=== PATIENT | male | born 1990 | race Two or more races ===

== ENCOUNTER 2021-04-04 20:08 | Emergency (ER) | payer MEDICAID, OTHER ==
[~2021-04-04] VITALS: Ht 160 cm; Wt 67.2 kg
[2021-04-04 23:19] VITALS: BP 147/79
== END 2021-04-04 23:22 | disposition home or self-care (01) ==
LOC: ER 20:10
DX: F41.9 Anxiety disorder, unspecified (principal); F12.10 Cannabis abuse, uncomplicated

== ENCOUNTER 2022-11-30 07:03 | Emergency (ER) | payer MEDICAID, OTHER ==
[~2022-11-30] VITALS: Ht 162.6 cm; Wt 67.3 kg
[2022-11-30] MEDS ORDERED: TETANUS-DIPTH-ACEL PERTUSSIS 0.5ML SYR Tdap IM ONE (08:15)
[2022-11-30] MEDS ORDERED: LIDOCAINE 2%HCL (LOCAL ANESTH.) INJ 20ML MDV ID ONE (08:15)
[2022-11-30] MEDS ORDERED: NEOMYCIN-BACITRACIN-POLYM UNITDOSE PKG TOP OINT TOP ONE (08:15)
[2022-11-30 08:36] VITALS: BP 130/90; TEMP 98.2
[2022-11-30] MEDS ORDERED: NAP500T PO (10:23)
[2022-11-30] MEDS ORDERED: CEFD300C2 PO (10:23)
[2022-11-30 10:29] VITALS: PULSE 74; RESP 18; O2SAT 97
== END 2022-11-30 10:39 | disposition home or self-care (01) ==
LOC: ER 07:03
DX: S61.210A Laceration without foreign body of right index finger without damage to nail, initial encounter (principal); F12.10 Cannabis abuse, uncomplicated; W26.0XXA Contact with knife, initial encounter; Y93.89 Activity, other specified; Y92.89 Other specified places as the place of occurrence of the external cause; Y99.8 Other external cause status
CPT/HCPCS: 12001; 90471; 90715